=== PATIENT | male | born 1980 | race Two or more races ===

== ENCOUNTER 2019-11-24 19:28 | Emergency (ER) | payer MEDICARE ==
[~2019-11-24] VITALS: Ht 182.9 cm; Wt 77.0 kg
[2019-11-25] MEDS ORDERED: FAMOTIDINE 20MG TABLET PO ONE (00:45)
[2019-11-25] MEDS ORDERED: DIPHENHYDRAMINE 50MG CAPSULE PO ONE (00:45)
[2019-11-25] MEDS ORDERED: METHYLPREDNISOLONE SOD SUCC 125 MG/2 ML VIAL IM ONE (00:45)
[2019-11-25 01:21] VITALS: BP 120/79
== END 2019-11-25 01:22 | disposition home or self-care (01) ==
LOC: ER 19:28
DX: R19.7 Diarrhea, unspecified (principal); T50.995A Adverse effect of other drugs, medicaments and biological substances, initial encounter; T78.2XXA Anaphylactic shock, unspecified, initial encounter; L50.9 Urticaria, unspecified; L51.9 Erythema multiforme, unspecified
CPT/HCPCS: 96372; 99283; J2930; Q0163